=== PATIENT | male | born 1970 | race African-American/Black ===

== ENCOUNTER 2019-08-09 10:14 | Day surgery (SDC) | payer OTHER ==
[~2019-08-09] VITALS: Ht 180.3 cm; Wt 106.6 kg
[~2019-08-09 10:14] MED LIST: AMLO10TA5 PO; ATOR1TAB21 PO; DICL1GEL3 TOP; MELA3TAB41 PO; METO25TA4 PO; NS 1,000 ML IV ONE; OMEP20CA4 PO; VALS1TAB67 PO
[2019-08-09] MEDS ORDERED: LIDOCAINE 2% INJ 100 MG/5 ML SDV (FOR ANES.) As Ordered ONE (11:32)
[2019-08-09] MEDS ORDERED: PROPOFOL 200 MG/20 ML VIAL As Ordered ONE (11:32)
[2019-08-09] MEDS ORDERED: METOPROLOL 5 MG/5 ML VIAL As Ordered ONE (11:34)
--- NOTE | 2019-08-09 12:07 | ROOR ---
Patient Name: Robel Yousif Procedure Date: 08/09/2019 11:43 AM Date of : 1970 Age: 48 Room: [facility] Gender: Male Note Status: Finalized Procedure: Colonoscopy Indications: Screening for colorectal malignant neoplasm Providers: DO Gloria Gan MD: [facility], [facility], [facility], Admin., [place] Requesting Provider: Medicines: Propofol per Anesthesia Complications: No immediate complications. Procedure: Pre-Anesthesia Assessment: - Prior to the procedure, a History and Physical was performed, and patient medications and allergies were reviewed. The patient is competent. The risks and benefits of the procedure and the sedation options and risks were discussed with the patient. All questions were answered and informed consent was obtained. Patient identification and proposed procedure were verified by the physician, the nurse, the anesthesiologist and the septic tank service technician in the endoscopy suite. Mental Status Examination: alert and oriented. Airway Examination: normal oropharyngeal airway and neck mobility. Respiratory Examination: clear to auscultation. CV Examination: normal. Prophylactic Antibiotics: The patient does not require prophylactic antibiotics. Prior Anticoagulants: The patient has taken no previous anticoagulant or antiplatelet agents. ASA Grade Assessment: II - A patient with mild systemic disease. After reviewing the risks and benefits, the patient was deemed in satisfactory condition to undergo the procedure. The anesthesia plan was to use monitored anesthesia care (MAC). Immediately prior to administration of medications, the patient was re-assessed for adequacy to receive sedatives. The heart rate, respiratory rate, oxygen saturations, blood pressure, adequacy of pulmonary ventilation, and response to care were monitored throughout the procedure. The physical status of the patient was re-assessed after the procedure. The Colonoscope was introduced through the anus and advanced to the cecum, identified by appendiceal orifice and ileocecal valve. The colonoscopy was performed without difficulty. The patient tolerated the procedure well. Findings: Non-bleeding internal hemorrhoids were found during retroflexion. The hemorrhoids were Grade I (internal hemorrhoids that do not prolapse). The exam was otherwise without abnormality on direct and retroflexion views. Impression: - Non-bleeding internal hemorrhoids. - The examination was otherwise normal on direct and retroflexion views. - No specimens collected. Recommendation: - Patient has a contact number available for emergencies. The signs and symptoms of potential delayed complications were discussed with the patient. Return to normal activities tomorrow. Written discharge instructions were provided to the patient. - Repeat colonoscopy in 5-10 years for screening purposes. - Return to my office PRN. Khai Trujillo DO 08/09/2019 12:06:23 PM Electronically signed by Khai Trujillo DO Number of Addenda: 0 Note Initiated On: 08/09/2019 11:43 AM Estimated Blood Loss: Estimated blood loss: none.
[2019-08-09 12:37] VITALS: BP 136/84
== END 2019-08-09 13:20 | disposition home or self-care (01) ==
LOC: M OPP 10:14
PROVIDERS: ATTEND Surgery
DX: Z12.11 Encounter for screening for malignant neoplasm of colon (principal); K64.0 First degree hemorrhoids; I10 Essential (primary) hypertension; E78.5 Hyperlipidemia, unspecified; I42.2 Other hypertrophic cardiomyopathy; K21.9 Gastro-esophageal reflux disease without esophagitis; F41.9 Anxiety disorder, unspecified; F32.9 Major depressive disorder, single episode, unspecified; G47.30 Sleep apnea, unspecified; R06.83 Snoring; Z79.899 Other long term (current) drug therapy

== ENCOUNTER → 2025-03-06 | Day surgery (SDC) | payer OTHER ==
[~2025-03-06] VITALS: Ht 180.3 cm; Wt 110.9 kg
[~2025-03-06] MED LIST changes: -AMLO10TA5 PO; +AMLO1TAB25 PO; +D31000CA4 PO; +DICL100G10 TOP; -DICL1GEL3 TOP; +LIDOCAINE 2% 100MG/5ML SDV (FOR ANES.) As Ordered ONE; +LOPR1TAB6 PO; +MELA3TAB30 PO; -MELA3TAB41 PO; -NS 1,000 ML IV ONE; +OMEP1CAP73 PO; -OMEP20CA4 PO; +propofoL 200 MG/20 ML VIAL As Ordered ONE
[2025-03-06 10:17] VITALS: TEMP 98.3
[2025-03-06 10:39] VITALS: BP 136/99; O2SAT 96
== END | disposition home or self-care (01) ==
LOC: M OPP 09:11
PROVIDERS: ATTEND Surgery
DX: Z12.11 Encounter for screening for malignant neoplasm of colon (principal); D12.3 Benign neoplasm of transverse colon; G47.30 Sleep apnea, unspecified; Z79.899 Other long term (current) drug therapy